=== PATIENT | female | born 2000 | race Caucasian/White ===

== ENCOUNTER 2021-09-09 04:13 | Emergency (ER) | payer MEDICAID ==
[~2021-09-09] VITALS: Ht 165.1 cm; Wt 57.0 kg
--- NOTE | 2021-09-09 04:39 | NUR ---
PT ROOMED IN BED 11. ASSUMED CARE OF PT.
[2021-09-09 05:09] LABS: BASOPHILS % (AUTO) 0.5 % (0-1); EOSINOPHILS # (AUTO) 0.1 X10'3 (0-0.9); EOSINOPHILS % (AUTO) 2.6 % (0-6); HEMATOCRIT 38.5 % (35.0-45.0); HEMOGLOBIN 12.9 g/dl (12.0-16.0); LYMPHOCYTES # (AUTO) 2.8 X10'3 (1.1-4.8); LYMPHOCYTES % (AUTO) 51.9 % (21-51); MEAN CORPUSCULAR HGB CONC 33.6 g/dL (33.0-36.5); MEAN CORPUSCULAR VOLUME 95.3 FL (78-98); MONOCYTES # (AUTO) 0.3 X10'3 (0-0.9); MONOCYTES % (AUTO) 6.2 % (2-12); NEUTROPHILS # (AUTO) 2.1 X10'3 (1.8-7.7); NEUTROPHILS % (AUTO) 38.8 % (42-75); PLATELET COUNT 237 X10'3 (140-440); RED BLOOD COUNT 4.04 X10'6 (4.20-5.60); RED CELL DISTRIBUTION WIDTH 13.1 % (11.5-14.5); WHITE BLOOD COUNT 5.3 X10'3 (4.5-11.0)
[2021-09-09 05:17] LABS: URINE HCG NEGATIVE (NEG)
[2021-09-09 05:25] LABS: CLARITY,URINE CLEAR (Clear); COLOR,URINE YELLOW (Yellow); GLUCOSE, URINE NEGATIVE (Neg); KETONES,URINE NEGATIVE (Neg); LEUKOCYTE ESTERASE ,URINE NEGATIVE (Neg); NITRITES, URINE NEGATIVE (Neg); OCCULT BLOOD,URINE NEGATIVE (Neg); PROTEIN,URINE NEGATIVE (Neg); UROBILINOGEN,URINE 0.2 E.U/dL (0.2-1.0)
[2021-09-09 05:29] LABS: UA COLLECTION TYPE CLN CATCH MIDSTREAM
[2021-09-09 05:30] LABS: ALANINE AMINOTRANSFERASE 28 U/L (12-78); ALBUMIN 3.9 G/DL (3.4-5.0); ALBUMIN/GLOBULIN RATIO 1.3 (1.1-1.5); ALKALINE PHOSPHATASE 35 IU/L (20-180); ANION GAP 6 (8-16); ASPARTATE AMINO TRANSFERASE 26 U/L (10-37); BILIRUBIN,TOTAL 0.5 MG/DL (0.1-1.0); BLOOD UREA NITROGEN 13 MG/DL (7-18); BUN/CREATININE RATIO 18.8 (6.6-38.0); CALCIUM 8.5 MG/DL (8.5-10.1); CHLORIDE 106 MMOL/L (99-107); CREATININE 0.69 MG/DL (0.40-0.90); GLUCOSE 131 MG/DL (70-104); LIPASE 95 U/L (73-393); POTASSIUM 3.8 MMOL/L (3.5-5.1); SODIUM 138 MMOL/L (135-145); TOTAL CARBON DIOXIDE 25.6 MMOL/L (24-32); TOTAL PROTEIN 6.9 G/DL (6.4-8.2); eGFR > 90 ML/MIN
[2021-09-09 05:58] LABS: PLATELET ESTIMATE NORMAL; TOTAL CELLS COUNTED 100
[2021-09-09 08:41] VITALS: BP 110/74
== END 2021-09-09 08:44 | disposition home or self-care (01) ==
LOC: ER 04:14
DX: N83.8 Other noninflammatory disorders of ovary, fallopian tube and broad ligament (principal); R10.2 Pelvic and perineal pain; R55 Syncope and collapse
CPT/HCPCS: 36415; 76856; 80053; 81003; 81025; 83690; 85007; 85025; 93976; 99284

== ENCOUNTER 2021-11-23 21:50 | Emergency (ER) | payer MEDICAID ==
[~2021-11-23] VITALS: Ht 165.1 cm; Wt 56.8 kg
[2021-11-23 22:10] VITALS: BP 119/72
[2021-11-24 01:30] LABS: BASOPHILS % (AUTO) 0.5 % (0-1); EOSINOPHILS # (AUTO) 0.2 X10'3 (0-0.9); EOSINOPHILS % (AUTO) 1.8 % (0-6); HEMATOCRIT 39.1 % (35.0-45.0); HEMOGLOBIN 13.1 g/dl (12.0-16.0); LYMPHOCYTES # (AUTO) 2.1 X10'3 (1.1-4.8); LYMPHOCYTES % (AUTO) 24.3 % (21-51); MEAN CORPUSCULAR HEMOGLOBIN 31.7 PG (27.0-31.0); MEAN CORPUSCULAR HGB CONC 33.6 g/dL (33.0-36.5); MEAN CORPUSCULAR VOLUME 94.3 FL (78-98); MEAN PLATELET VOLUME 8.5 FL (7.4-10.4); MONOCYTES # (AUTO) 0.8 X10'3 (0-0.9); NEUTROPHILS # (AUTO) 5.6 X10'3 (1.8-7.7); NEUTROPHILS % (AUTO) 64.4 % (42-75); PLATELET COUNT 286 X10'3 (140-440); RED BLOOD COUNT 4.15 X10'6 (4.20-5.60); RED CELL DISTRIBUTION WIDTH 12.4 % (11.5-14.5); WHITE BLOOD COUNT 8.6 X10'3 (4.5-11.0)
[2021-11-24 01:47] LABS: ALANINE AMINOTRANSFERASE 20 U/L (12-78); ALBUMIN 3.9 G/DL (3.4-5.0); ALKALINE PHOSPHATASE 40 IU/L (20-180); ANION GAP 4 (8-16); ASPARTATE AMINO TRANSFERASE 13 U/L (10-37); BILIRUBIN,TOTAL 0.5 MG/DL (0.1-1.0); BLOOD UREA NITROGEN 11 MG/DL (7-18); BUN/CREATININE RATIO 16.2 (6.6-38.0); CHLORIDE 105 MMOL/L (99-107); CREATININE 0.68 MG/DL (0.40-0.90); GLUCOSE 95 MG/DL (70-104); LIPASE 98 U/L (73-393); POTASSIUM 4.2 MMOL/L (3.5-5.1); SODIUM 138 MMOL/L (135-145); TOTAL CARBON DIOXIDE 28.8 MMOL/L (24-32); TOTAL PROTEIN 7.9 G/DL (6.4-8.2); eGFR > 90 ML/MIN
== END 2021-11-24 02:05 | disposition left against medical advice (07) ==
LOC: ER 21:51
DX: R10.9 Unspecified abdominal pain (principal); Z53.21 Procedure and treatment not carried out due to patient leaving prior to being seen by health care provider
CPT/HCPCS: 36415; 80053; 83690; 85025

== ENCOUNTER 2021-11-24 10:41 | Emergency (ER) | payer MEDICAID ==
[~2021-11-24] VITALS: Ht 165.1 cm; Wt 54.5 kg
[2021-11-24 11:01] VITALS: BP 101/68
--- NOTE | 2021-11-24 12:30 | NUR ---
NIL 1230
--- NOTE | 2021-11-24 12:46 | NUR ---
NIL 1245
--- NOTE | 2021-11-24 13:33 | NUR ---
NIL 1330
== END 2021-11-24 16:38 | disposition left against medical advice (07) ==
LOC: ER 10:41
DX: R10.9 Unspecified abdominal pain (principal); Z53.21 Procedure and treatment not carried out due to patient leaving prior to being seen by health care provider